=== PATIENT | male | born 1940 | race Asian ===

== ENCOUNTER 2016-04-11 14:08 | Inpatient (IN) | payer OTHER ==
[~2016-04-11] VITALS: Ht 167.6 cm; Wt 58.5 kg
[~2016-04-11 14:08] MED LIST: AMBIEN5 MG PO; APRODINE 60 MG-1 TAB PO; ASPIR 8181 MG PO; CEPHALEXIN500 M2 PO; ISORDIL10 M1 PO; LOTENSIN20 MG PO; METOPROLOL25 MG PO; MOBIC15 MG PO; NORVASC10 MG PO; ORETIC25 MG PO; PHENERGAN/DEXTRO5 ML PO; PREVACID30 MG PO; ZITHROMAX250 MG PO; ZOCOR40 MG PO
[2016-04-11 14:11] VITALS: BP 125/75
--- NOTE | 2016-04-11 15:01 | NUR ---
PT AMBULATED TO ER BED 07.
--- NOTE | 2016-04-11 15:05 | NUR ---
75/M CAME TO ED WITH C/O OF LACERATION TO LEFT BACK OF HEAD. STATES LOSS OF BALANCE AND FELL HITTING HEAD ON A CONCRETE WALL. DENIES NO LOSS OF CONSCIOUSNESS OR ANY ALTERATION WITH ORIENTATION. HX OF HTN AND THROAT CANCER. DENIES N/V/D; SKIN IS PINK/WARM/DRY; AAOX4 STEADY GAIT WITH ASSISTANCE WITH FWW; LUNGS CLEAR BL; HR EVEN AND REGULAR; PT DENIES ANY FEVER, CP, SOB, OR COUGH AT THIS TIME; PATIENT STATES PAIN OF 3/10 AT THIS TIME; VSS; PATIENT POSITIONED FOR COMFORT; HOB ELEVATED; BEDRAILS UP X2; BED DOWN. ER MD MADE AWARE OF PT STATUS.
--- NOTE | 2016-04-11 15:10 | NUR ---
Patient being evaluated by physician at bedside.
[2016-04-11] MEDS ORDERED: NACL 0.9% 1,000 ML IV ONE (17:00)
[2016-04-11] MEDS ORDERED: PROMETHAZINE DM 6.25/15MG-5ML ORASYR PO PRN (18:15)
[2016-04-11] MEDS ORDERED: ONDANSETRON 4 MG/2 ML VIAL IVP PRN (18:15)
[2016-04-11] MEDS ORDERED: ACETAMINOPHEN 325 MG TAB PO PRN (18:15)
[2016-04-11] MEDS ORDERED: MORPHINE SULFATE 2 MG/ML SYR IVP PRN (18:15)
[2016-04-11] MEDS ORDERED: ZOLPIDEM 5 MG TAB PO PRN (18:15)
--- NOTE | 2016-04-11 18:32 | NUR ---
ASSESSED PT IV SITE. IVF STOPPED. IV TO LEFT FOREARM IS INFILTRATED. DC'D IV AND WRAPPED IN WARM BLANKET. DENIES PAIN AT THIS TIME.
--- NOTE | 2016-04-11 19:10 | NUR ---
Patient will be admitted to care of Derian NAZARIO. Admited to TELE. Will go to room 124 B. Belongings list completed. Report to MUSTAPHA MENCHACA.
--- NOTE | 2016-04-11 19:18 | NUR ---
HANDED OVER CARE TO MUSTAPHA ALVA. REPORT ALREADY CALLED. NEEDS TRANSPORT TO [facility]. PT READY.
--- NOTE | 2016-04-11 19:25 | NUR ---
RECEIVED REPORT FROM ED RN FOR CONTINUITY OF CARE. 75 Y.O. MALE WITH DIAGNOSIS SYNCOPE AND ACUTE RENAL FAILURE. BROUGHT TO UNIT ON RTERRIL. PT IS A&OX4, NON VERBAL BUT FOLLOWS COMMANDS. ORIENTED PATIENT TO ROOM AND APPLIED ALL WRISTBANDS. SHIFT ASSESSMENT DONE, VS TAKEN, PT IS STABLE AT THIS TIME. NO S/S OF RESPIRATORY DISTRESS NOTED ON ROOM AIR. NO S/S OF PAIN NOTED. IV TO RT WRIST 22 GAUGE PATENT AND FLUSHED. PT HAS LACERATION TO LT SIDE OF THE BACK OF HEAD, JOHANNA INTACT, PICTURE TAKEN. PT ALSO HAS OPEN TRACH WOUND ON MIDLINE NECK FROM OLD TRACH. PLAN OF CARE EXPLAINED TO PATIENT AND FAMILY MEMBERS AT BEDSIDE. SAFETY/ FALL PRECAUTIONS IMPLEMENTED, YELLOW WRISTBAND AND SOCKS PLACED. CALL LIGHT PLACED WITHIN REACH. WILL CONTINUE TO MONITOR.
[2016-04-11 20:00] VITALS: BP 132/93
[2016-04-11] MEDS: NACL 0.9% 1,000 ML IV SCH (20:03)
[2016-04-11] MEDS: ISOSORBIDE DINITRATE 10 MG TAB PO SCH (21:25)
--- NOTE | 2016-04-11 21:25 | NUR ---
PATIENT UP TO USE RESTROOM. AMBULATING WITH ASSIST.
--- NOTE | 2016-04-11 23:54 | NUR ---
VS TAKEN, STABLE. PT IS AWAKE WITH FAMILY MEMBER AT BEDSIDE.
[2016-04-12] VITALS: BP 153/89
--- NOTE | 2016-04-12 01:57 | NUR ---
PT IS SLEEPING. NO S/S OF DISTRESS OR DISCOMFORT NOTED.
[2016-04-12] MEDS: NACL 0.9% 1,000 ML IV SCH (03:26)
[2016-04-12 04:00] VITALS: BP 143/91
--- NOTE | 2016-04-12 04:10 | NUR ---
VS TAKEN, STABLE. PATIENT IS SLEEPING. FAMILY MEMBER AT BEDSIDE.
--- NOTE | 2016-04-12 06:10 | NUR ---
DUE MEDICATIONS ADMINISTERED, TOLERATED WELL. PT VOIDED IN URINAL. WILL CONTINUE TO MONITOR.
[2016-04-12] MEDS ORDERED: LANSOPRAZOLE 30 MG CAPDR PO SCH (06:30)
--- NOTE | 2016-04-12 07:25 | NUR ---
ENDORSED PATIENT TO DAYSHIFT RN FOR CONTINUITY OF CARE. PATIENT IS STABLE.
--- NOTE | 2016-04-12 07:25 | NUR ---
LACERATION WITH JOHANNA TO BACK OF HEAD ALS NOTED WITH NO ACTIVE BLEEDING NOTED.
--- NOTE | 2016-04-12 07:25 | NUR ---
RECEIVED REPORT FROM NIGHT NURSE NIKOLAI RN, PATIENT APPEARED TO BE AWAKE CALM AND RESTING WELL IN BED. AAOX4 NON VERBAL DUE TO TRACH OPENING FROM THROAT SURGERY FOR CANCER. NO SOB OR SIGN OF RESPIRATORY DISTRESS NOTED AT THIS TIME. INITIAL ASSESSMENT DONE. PATIENT HAS OLD SCAR TO LEFT UPPER QUADRANT FROM HX OF G-TUBE PLACEMENT. PATIENT DENIED ANY PAIN OR DISCOMFORT. PATIENT HAS IV 22G TO RIGHT WRIST INFUSING WELL WITH IVF. PLAN OF CARE AND PAIN MANAGEMENT DISCUSSED, PATIENT VERBALIZED UNDERSTANDING. FAMILY MEMBER AT BEDSIDE. CALL LIGHT WITHIN REACH. WILL CONTINUE TO MONITOR.
[2016-04-12 08:00] VITALS: BP 121/80
--- NOTE | 2016-04-12 08:16 | NUR ---
PATIENT HAS BEEN SCREENED AND CATEGORIZED HIGH NUTRITION RISK. PATIENT WILL BE SEEN WITHIN 1-2 DAYS OF ADMISSION. 04/12/16-04/13/[address]
[2016-04-12] MEDS: ISOSORBIDE DINITRATE 10 MG TAB PO SCH (08:43)
--- NOTE | 2016-04-12 08:52 | NUR ---
MORNING DUE MEDICATION GIVEN WITH TEACHING, PATIENT TOLERATED WELL AND VERBALIZED UNDERSTANDING. NO SIGN OF DISTRESS NOTED AT THIS TIME. PATIENT DENIED ANY N/V. DENIED HEADACHE. ALL NEEDS ARE MET. CALL LIGHT WITHIN REACH. WILL CONTINUE TO MONITOR. FAMILY MEMBER AT BEDSIDE.
[2016-04-12] MEDS ORDERED: amLODIPine 5 MG TAB PO SCH (09:00)
[2016-04-12] MEDS ORDERED: ECOTRIN 81 MG TABEC PO SCH (09:00)
[2016-04-12] MEDS ORDERED: SIMVASTATIN 40 MG TAB PO SCH ×2 (09:00)
--- NOTE | 2016-04-12 11:30 | NUR ---
PER DR HIDALGO, PATIENT IS OK TO BE DISCHARGED AND FOLLOW UP WITH DR GUERRIER WITHIN 1 WEEK OF DISCHARGE.
--- NOTE | 2016-04-12 11:58 | NUR ---
URINE CLEAN CATCH FOR SODIUM RANDOM COLLECTED AND SENT TO LAB.
[2016-04-12 12:00] VITALS: BP 107/63
--- NOTE | 2016-04-12 13:32 | NUR ---
04/12/16 RD INITIAL ASSESSMENT COMPLETED PLEASE REFER TO NUTRITION ASSESSMENT UNDER CARE ACTIVITY FOR ESTIMATED NUTRITIONAL NEEDS. RD RECOMMENDATIONS: 1. CONTINUE CARDIAC DIET MEDICALLY APPROPRIATE. --NOTE PT WITH INCREASED KCAL AND PROTEIN NEEDS D/T PMH OF THROAT CANCER S/P POST TRACH. 2. RD WILL F/U 3-5 DAYS; MODERATE RISK. SAUMYA LOPES, RD
--- NOTE | 2016-04-12 16:33 | NUR ---
ALL DISCHARGE INSTRUCTIONS PAPERS SIGNED BY PATIENT' SON. ALL DISCHARGE MEDICATIONS ANDFOLLOW UP WITH PCP AND DR GUERRIER FOR ACUTE RENAL FAILURE WITHIN 1 WEEK OF DISCHARGE INSTRUCTIONS GIVEN, PATIENT AND FAMILY MEMBERS VERBALIZED UNDERSTANDING. ALL IV'S, ID BANDS, AND TELE MONITOR REMOVED. PATIENT WILL BE DISCHARGED HOME SELF CARE VIA PRIVATE VEHICLE. WOUND PHOTO OF HEAD TAKEN AND PUT IN CHART. PATIENT LEFT THE HOSPITAL WITH FAMILY MEMBERS IN STABLE CONDITIONS. NO SIGN OF DISTRESS NOTED. PATIENT DENIED ANY PAIN OR CHEST DISCOMFORT. DENIED N/V/D. ALL BELONGING WITH PATIENT.
[2016-04-13] MEDS ORDERED: amLODIPine 5 MG TAB PO SCH (09:00)
--- NOTE | 2016-04-14 08:38 | NUR ---
RETRO REVIEW ER REPORT, H&P, CONSULT AND DISCHARGE SUMMARY FAXED TO [facility] [phone] PHONE B[place]LEE [phone]
--- NOTE | 2016-04-14 09:12 | NUR ---
WOUND CARE NOTES: UNABLE TO SEE PATIENT, PATIENT GOT D/C'D 04/12/16
== END 2016-04-12 16:20 | disposition home or self-care (01) | DRG 952 ==
LOC: MED 14:12 → MTU 17:34
PROVIDERS: ADMIT Hospitalist; ATTEND Hospitalist
PROC: 0WQ0XZZ Repair Head, External Approach (ICD-10-PCS; principal; 2016-04-11)
DX: N17.9 Acute kidney failure, unspecified (principal); J44.9 Chronic obstructive pulmonary disease, unspecified; Z93.0 Tracheostomy status; E86.0 Dehydration; I12.9 Hypertensive chronic kidney disease with stage 1 through stage 4 chronic kidney disease, or unspecified chronic kidney disease; D64.9 Anemia, unspecified; S01.01XA Laceration without foreign body of scalp, initial encounter; N18.9 Chronic kidney disease, unspecified; X58.XXXA Exposure to other specified factors, initial encounter; W19.XXXA Unspecified fall, initial encounter; Y93.89 Activity, other specified; Y92.89 Other specified places as the place of occurrence of the external cause; Z85.819 Personal history of malignant neoplasm of unspecified site of lip, oral cavity, and pharynx; Y99.8 Other external cause status